=== PATIENT | male | born 1995 | race Hispanic/Latino ===

== ENCOUNTER 2022-06-26 04:28 | Emergency (ER) | payer OTHER ==
[~2022-06-26] VITALS: Ht 172.7 cm; Wt 83.9 kg
[2022-06-26 04:34] VITALS: BP 121/66
== END 2022-06-26 05:57 | disposition home or self-care (01) ==
LOC: EDH 04:28
DX: F10.129 Alcohol abuse with intoxication, unspecified (principal)